=== PATIENT | female | born 1975 | race Hispanic/Latino ===

== ENCOUNTER 2018-08-15 06:28 | Day surgery (SDC) | payer OTHER ==
[2018-08-12 14:07] LABS: BASOPHILS % (AUTO) 0.7 % (0.0-5.0); EOSINOPHILS % (AUTO) 1.8 % (0.0-8.0); LYMPHOCYTES % (AUTO) 26.4 % (21.0-51.0); MEAN CORPUSCULAR HGB CONC 33.6 g/dL (32.0-36.0); MONOCYTES % (AUTO) 5.8 % (3.0-13.0); NEUTROPHILS % (AUTO) 65.3 % (40.0-77.0); PLATELET COUNT (AUTO) 262 K/uL (130-400); RED BLOOD CELL COUNT(AUTO) 4.34 MIL/uL (4.00-5.50); RED CELL DISTRIBUTION WIDTH 13.1 % (11.0-15.5); WHITE BLOOD COUNT (AUTO) 7.9 K/uL (4.8-10.8)
[2018-08-12 14:21] LABS: INR 0.97 (0.85-1.15); PARTIAL THROMBOPLASTIN TIME 28.4 SEC (26.3-35.5); PROTHROMBIN TIME 10.2 SEC (9.6-11.6)
[2018-08-12 14:22] VITALS: BP 119/53
[2018-08-12 14:30] LABS: ALBUMIN 3.8 g/dL (3.5-5.0); BILIRUBIN,TOTAL 0.5 mg/dL (0.2-1.0); CREATININE 0.6 mg/dL (0.5-1.5); TOTAL PROTEIN, SERUM 7.3 g/dL (6.0-8.3)
--- NOTE | 2018-08-12 14:30 | NUR ---
NOTE PT STATES SHE WAS STARTED ON ANTIBIOTICS FOR TOOTH PAIN NOT NECCESSARY FOR INFECTION. SPOKE TO BLAISE FROM DR SAUCEDO OFFICE REGARDING PT BEING ON ANTIBIOTIC FOR HER TOOTH. SHE HAS MADE DOCTOR AWARE, OK TO PROCEED, STATES SHE WILL BE GIVEN ADDITIONAL ABX
[~2018-08-15] VITALS: Ht 170.2 cm; Wt 70.9 kg
[2018-08-15] VITALS (10 sets, daily range): BP systolic 107–127; BP diastolic 38–66
[~2018-08-15 06:28] MED LIST: AMOX500C2 PO; IBUP-2077 PO; LIDOCAINE PATCH ID; MULT-1203 PO
[2018-08-15] MEDS: CEFAZOLIN SODIUM 1 GM VIAL IVP SCH ×2 (07:00→07:50)
--- NOTE | 2018-08-15 07:00 | NUR ---
NEGATIVE HCG DRAWN ON 08-12-18. PT STATES NO CHANCE OF OVER THE WEEKEND.
[2018-08-15] MEDS ORDERED: LACTATED RINGERS 1000ML 1,000 ML IV ONE (07:01)
[2018-08-15] MEDS ORDERED: LIDOCAINE HCL 1% 20 ML VIAL ONE (07:12)
[2018-08-15] MEDS ORDERED: BUPIVACAINE/PF 0.25% 30ML VIAL IJ ONE (07:12)
[2018-08-15] MEDS ORDERED: BUPIVACAINE/PF 0.25% 10ML VIAL IJ ONE (07:13)
[2018-08-15] MEDS ORDERED: CALC500T13 PO (07:18)
[2018-08-15] MEDS ORDERED: IOPAMIDOL 10 ML VIAL ONE (07:45)
[2018-08-15] MEDS ORDERED: MIDAZOLAM HCL 1 MG/ML 2ML VIAL ONE (07:49)
[2018-08-15] MEDS ORDERED: FENTANYL CITRATE PF 50 MCG/1 ML 2ML VIAL ONE (07:49)
[2018-08-15] MEDS ORDERED: PROPOFOL 10 MG/ML 20ML VIAL IV ONE (07:49)
== END 2018-08-15 09:30 | disposition home or self-care (01) ==
LOC: DAH 06:28 → SUH 06:28
PROVIDERS: ATTEND Neuromusculoskeletal Medicine & OMM
DX: M47.896 Other spondylosis, lumbar region (principal); G89.4 Chronic pain syndrome; Z98.890 Other specified postprocedural states; Z83.3 Family history of diabetes mellitus; Z79.899 Other long term (current) drug therapy; Z79.01 Long term (current) use of anticoagulants
CPT/HCPCS: 36415; 64493; 80053; 84702; 85025; 85610; 85730; A4218; J0690; J1030; J2250; J2704; J3010; J3490 ×2; J7120; 76000

== ENCOUNTER 2018-12-23 05:48 | Day surgery (SDC) | payer OTHER ==
[2018-12-21 12:35] VITALS: BP 137/59
[2018-12-21 12:49] LABS: BASOPHILS % (AUTO) 0.8 % (0.0-5.0); HEMATOCRIT 40.5 % (36-48); LYMPHOCYTES % (AUTO) 26.9 % (21.0-51.0); MEAN CORPUSCULAR HEMOGLOBIN 31.3 pg (27.0-33.0); MEAN CORPUSCULAR HGB CONC 34.2 g/dL (32.0-36.0); MEAN CORPUSCULAR VOLUME 91.5 fL (79-99); MONOCYTES % (AUTO) 6.1 % (3.0-13.0); NEUTROPHILS % (AUTO) 64.2 % (40.0-77.0); NUCLEATED RED BLOOD CELLS 0.1 % (0.0-0.19); PLATELET COUNT (AUTO) 257 K/uL (130-400); RED BLOOD CELL COUNT(AUTO) 4.43 MIL/uL (4.00-5.50); RED CELL DISTRIBUTION WIDTH 13.3 % (11.0-15.5); WHITE BLOOD COUNT (AUTO) 7.2 K/uL (4.8-10.8)
[2018-12-21 13:03] LABS: CREATININE 0.5 mg/dL (0.5-1.5); POTASSIUM 3.6 mmol/L (3.5-5.1)
[2018-12-21 13:07] LABS: INR 0.96 (0.85-1.15); PARTIAL THROMBOPLASTIN TIME 29.4 SEC (26.3-35.5); PROTHROMBIN TIME 10.1 SEC (9.6-11.6)
[~2018-12-23] VITALS: Ht 167.6 cm; Wt 71.7 kg
[2018-12-23] VITALS (14 sets, daily range): BP systolic 93–115; BP diastolic 40–63
[~2018-12-23 05:48] MED LIST changes: -AMOX500C2 PO; +CALC500T13 PO; -IBUP-2077 PO; -LIDOCAINE PATCH ID; +LORA10CA9 PO
[2018-12-23] MEDS ORDERED: CEFAZOLIN SODIUM 1 GM VIAL ONE (06:08)
[2018-12-23] MEDS ORDERED: LACTATED RINGERS 1000ML 1,000 ML IV ONE (06:08)
[2018-12-23] MEDS ORDERED: LIDOCAINE HCL 1% MDV 50ML VIAL ONE (06:47)
[2018-12-23] MEDS ORDERED: BUPIVACAINE/PF 0.25% 30ML VIAL IJ ONE (06:47)
[2018-12-23] MEDS ORDERED: LIDOP TP (06:51)
--- NOTE | 2018-12-23 06:53 | NUR ---
ANXIETY gave pt lavender aromatherapy patch and dimmed lights ,call romeo in reach Addendum: 12/23/18 at 0656 by REMBERTO GUPTA RN RN Amended: Links added.
[2018-12-23] MEDS ORDERED: MIDAZOLAM HCL 1 MG/ML 2ML VIAL ONE ×2 (07:58→08:04)
[2018-12-23] MEDS ORDERED: FENTANYL CITRATE PF 50 MCG/1 ML 2ML VIAL ONE (07:59)
[2018-12-23] MEDS ORDERED: DiphenhydrAMINE HCL 50 MG/ML VIAL ONE (08:08)
--- NOTE | 2018-12-23 08:51 | NUR ---
BP INFORMED DR. TORRES PT COMFORTABLE. BP OF 98/46. NO ORDERS RECEIVED. CAN BE TRANSFERRED TO DAY PT.
--- NOTE | 2018-12-23 09:08 | NUR ---
RECEIVE PT RECEIVED FROM PACU VIA STRETCHER AWAKE ALERT ORIENTED X3. PT STABLE. NO COMPLAINTS MADE. BAND AIDS X2 TO LOWER BACK DRY AND INTACT, NO OOZING NO HEMATOMA NOTED. LOWER BACK INJECTION SITES SOFT, NO SWELLING NO REDNESS NOTED. WILL CONTINUE TO MONITOR PT. MAINTAINED AND INSTRUCTED PT TO BE ON BEDREST. VERBALIZED UNDERSTANDING. CALL VALVERDE WITHIN REACH. WILL CALL FOR TO COME IN TO ROOM.
--- NOTE | 2018-12-23 10:40 | NUR ---
DISCHARGE PT DISCHARGED VIA WHEELCHAIR WITH . PT STABLE. NO COMPLAINTS MADE. LOWER BACK REMAINS SOFT, NO SWELLING NO REDNESS NOTED, BAND AIDS REMAINED DRY AND INTACT, NO OOZING NO HEMATOMA NOTED. PT VOIDED PRIOR TO DISCHARGE, AMBULATED WITHOUT ANY PROBLEMS. DISCHARGE INSTRUCTIONS GIVEN TO AND PT, VERBALIZED UNDERSTANDING.
== END 2018-12-23 10:40 | disposition home or self-care (01) ==
LOC: DAH 05:48
PROVIDERS: ATTEND Neuromusculoskeletal Medicine & OMM
DX: M47.816 Spondylosis without myelopathy or radiculopathy, lumbar region (principal); M54.5 Low back pain; Z79.899 Other long term (current) drug therapy; Z98.890 Other specified postprocedural states; Z83.3 Family history of diabetes mellitus; Z82.49 Family history of ischemic heart disease and other diseases of the circulatory system
CPT/HCPCS: 36415; 64493; 80048; 84703; 85025; 85610; 85730; J1030; J1200; J2250 ×2; J3010; J3490 ×2; J7120; 77003; J0690

== ENCOUNTER 2019-06-01 22:06 | Emergency (ER) | payer OTHER ==
[~2019-06-01 22:06] MED LIST changes: +LIDOP TP
[2019-06-01] MEDS ORDERED: KETOROLAC TROMETHAMINE 30MG/ML ONE (22:58)
[2019-06-01] MEDS ORDERED: ORPHENADRINE CITRATE 30 MG/ML ML ONE (22:59)
[2019-06-01] MEDS ORDERED: HYDROCODONE/ACETAMINOPHEN 5/325 MG TAB ONE (23:00)
[2019-06-01] MEDS ORDERED: ONDANSETRON HCL 4 MG/2 ML VIAL ONE (23:01)
== END 2019-06-02 03:45 | disposition home or self-care (01) ==
LOC: EDH 22:06
DX: M62.830 Muscle spasm of back (principal); M54.5 Low back pain; Z90.49 Acquired absence of other specified parts of digestive tract
CPT/HCPCS: 99281; J1885; J2360; J2405

== ENCOUNTER 2023-08-09 09:36 | Emergency (ER) | payer OTHER ==
[~2023-08-09] VITALS: Ht 167.6 cm; Wt 75.3 kg
[2023-08-09] MEDS ORDERED: FAMOTIDINE 20MG VIAL IV ONE (10:00)
[2023-08-09] MEDS ORDERED: ONDANSETRON 4MG INJ IVP ONE (10:00)
[2023-08-09] MEDS ORDERED: 0.9%NACL 1000ML 1,000 ML IV ONE (10:00)
[2023-08-09 10:08] LABS: BASOPHILS # (AUTO) 0.05 K/uL (0.00-0.20); BASOPHILS % (AUTO) 0.6 % (0.0-5.0); EOSINOPHILS # (AUTO) 0.32 K/uL (0.00-0.70); EOSINOPHILS % (AUTO) 3.9 % (0.0-8.0); HEMATOCRIT 41.2 % (36-48); IMMATURE GRANULOCYTE ABSOLUTE 0.03 K/uL (0-1); LYMPHOCYTES # (AUTO) 1.6 K/uL (1.0-4.8); LYMPHOCYTES % (AUTO) 19.6 % (21.0-51.0); MEAN CORPUSCULAR HEMOGLOBIN 28.7 pg (27.0-33.0); MEAN CORPUSCULAR HGB CONC 32.8 g/dL (32.0-36.0); MEAN CORPUSCULAR VOLUME 87.7 fL (79-99); MONOCYTES # (AUTO) 0.5 K/uL (0.1-1.0); MONOCYTES % (AUTO) 5.4 % (3.0-13.0); NEUTROPHILS # (AUTO) 5.8 K/uL (1.8-7.7); NEUTROPHILS % (AUTO) 70.1 % (40.0-77.0); PLATELET COUNT (AUTO) 290 K/uL (130-400); RED CELL DISTRIBUTION WIDTH 13.5 % (11.0-15.5); WHITE BLOOD COUNT (AUTO) 8.3 K/uL (4.8-10.8)
[2023-08-09 10:26] LABS: ALBUMIN 3.4 g/dL (3.5-5.0); BILIRUBIN,TOTAL 0.6 mg/dL (0.2-1.0); CREATININE 0.6 mg/dL (0.5-1.5); TOTAL PROTEIN, SERUM 7.4 g/dL (6.0-8.3)
[2023-08-09 10:30] LABS: POTASSIUM 3.9 mmol/L (3.5-5.1)
[2023-08-09 10:37] LABS: APPEARANCE,URINE CLEAR (CLEAR); BILIRUBIN,URINE NEGATIVE (NEGATIVE); COLOR,URINE LIGHT-YELLOW (YELLOW); GLUCOSE, URINE (UA) NEGATIVE (NEGATIVE); KETONES,URINE NEGATIVE (NEGATIVE); LEUKOCYTE ESTERASE ,URINE 75 Leu/uL (NEGATIVE); NITRATE,URINE NEGATIVE (NEGATIVE); OCCULT BLOOD,URINE NEGATIVE (NEGATIVE); PROTEIN,URINE NEGATIVE (NEGATIVE); UROBILINOGEN,URINE 0.2 mg/dL (0.2-1.0)
[2023-08-09 10:40] LABS: ADD UA MICROSCOPIC YES
[2023-08-09 10:49] LABS: MUCUS,URINE RARE LPF (None Seen); SQUAMOUS EPITHELIAL CELL,UR FEW /HPF (0-2)
[2023-08-09 12:49] VITALS: BP 105/49; PULSE 69; RESP 16; O2SAT 99
[2023-08-09] MEDS ORDERED: DICY20TA2 PO (13:03)
[2023-08-09] MEDS ORDERED: ONDA4TAB10 PO (13:03)
[2023-08-12 14:13] LABS: C DIFFICILE TOXIN A/B Not Detected (Not Detected); ENTEROAGGREGATIVE ECOLI Not Detected (Not Detected); GIARDIA LAMBLIA Not Detected (Not Detected); PLESIOMONAS SHIGELOIDES Not Detected (Not Detected); SAPOVIRUS Not Detected (Not Detected); SHIGELLA/ENTEROINVASIVE E COLI Not Detected (Not Detected); VIBRIO Not Detected (Not Detected); VIBRIO CHOLERAE Not Detected (Not Detected)
== END 2023-08-09 13:23 | disposition home or self-care (01) ==
LOC: EDH 09:36
DX: K52.9 Noninfective gastroenteritis and colitis, unspecified (principal); Z90.49 Acquired absence of other specified parts of digestive tract
CPT/HCPCS: 99284; 96374; 96361; 96375; 80053; 83690; 85025; 87088; 81001; 36415; 87507; J3490; J7030; J2405

== ENCOUNTER 2023-09-24 11:10 | Emergency (ER) | payer OTHER ==
[~2023-09-24] VITALS: Ht 167.6 cm; Wt 77.1 kg
[~2023-09-24 11:10] MED LIST changes: +DICY20TA2 PO; +ONDA4TAB10 PO
[2023-09-24 11:57] LABS: BASOPHILS # (AUTO) 0.04 K/uL (0.00-0.20); BASOPHILS % (AUTO) 0.2 % (0.0-5.0); EOSINOPHILS # (AUTO) 0.01 K/uL (0.00-0.70); HEMATOCRIT 41.8 % (36-48); IMMATURE GRANULOCYTE ABSOLUTE 0.07 K/uL (0-1); LYMPHOCYTES % (AUTO) 4.9 % (21.0-51.0); MEAN CORPUSCULAR HEMOGLOBIN 29.3 pg (27.0-33.0); MEAN CORPUSCULAR HGB CONC 34.9 g/dL (32.0-36.0); MEAN CORPUSCULAR VOLUME 83.8 fL (79-99); MONOCYTES # (AUTO) 0.5 K/uL (0.1-1.0); MONOCYTES % (AUTO) 2.3 % (3.0-13.0); NEUTROPHILS # (AUTO) 19.1 K/uL (1.8-7.7); NEUTROPHILS % (AUTO) 92.3 % (40.0-77.0); PLATELET COUNT (AUTO) 366 K/uL (130-400); RED BLOOD CELL COUNT(AUTO) 4.99 MIL/uL (4.00-5.50); RED CELL DISTRIBUTION WIDTH 13.4 % (11.0-15.5); WHITE BLOOD COUNT (AUTO) 20.7 K/uL (4.8-10.8)
[2023-09-24 12:00] LABS: RAPID GROUP A STREP negative (NEGATIVE)
[2023-09-24] MEDS: 0.9%NACL 1000ML 1,779 ML IV ONE (12:05)
[2023-09-24 12:06] LABS: SARS-CoV-2, RNA, NAAT NEGATIVE SARS CoV-2 (NEGATIVE)
[2023-09-24 12:10] LABS: INFLUENZA TYPE A Negative For Type A (NEGATIVE); INFLUENZA TYPE B Negative For Type B (NEGATIVE)
[2023-09-24 12:17] LABS: ALBUMIN 3.8 g/dL (3.5-5.0); BILIRUBIN,TOTAL 0.5 mg/dL (0.2-1.0); CREATININE 0.6 mg/dL (0.5-1.5); POTASSIUM 3.5 mmol/L (3.5-5.1); TOTAL PROTEIN, SERUM 8.1 g/dL (6.0-8.3)
[2023-09-24] MEDS ORDERED: 0.9%NACL 1000ML 1,779 ML IV ONE (12:30)
[2023-09-24] MEDS: DEXAMETHASONE SOD PHOSPHATE 4 MG/ML 1ML VIAL IM ONE (12:31)
[2023-09-24] MEDS: DICYCLOMINE HCL 10 MG/5 ML ML PO SCH (13:05)
[2023-09-24] MEDS: MAG/ALUM/SIMETH 30 ML UDCUP PO ONE (13:05)
[2023-09-24] MEDS: LIDOCAINE HCL 2% VISCOUS 15 ML UDCUP PO ONE (13:05)
[2023-09-24 13:11] LABS: INR <= 0.93 (0.85-1.15); PROTHROMBIN TIME 10.9 SEC (9.6-11.6)
[2023-09-24 13:12] LABS: PARTIAL THROMBOPLASTIN TIME 28.4 SEC (26.3-35.5)
[2023-09-24] MEDS: CEFTRIAXONE 1G VIAL IVPB ONE (14:39)
[2023-09-24] MEDS ORDERED: MORPHINE 4 MG SYG IM ONE (15:00)
[2023-09-24] MEDS: LEVOFLOXACIN 500 MG/D5W 100 ML 100 ML IV SCH (15:14)
[2023-09-24] MEDS: ONDANSETRON 4MG INJ IVP ONE ×3 (15:14→19:08)
[2023-09-24] MEDS: MORPHINE 4 MG SYG IVP ONE (15:18)
[2023-09-24 16:24] LABS: APPEARANCE,URINE CLEAR (CLEAR); BILIRUBIN,URINE NEGATIVE (NEGATIVE); COLOR,URINE LIGHT-YELLOW (YELLOW); GLUCOSE, URINE (UA) NEGATIVE (NEGATIVE); KETONES,URINE NEGATIVE (NEGATIVE); LEUKOCYTE ESTERASE ,URINE NEGATIVE Leu/uL (NEGATIVE); NITRATE,URINE NEGATIVE (NEGATIVE); OCCULT BLOOD,URINE NEGATIVE (NEGATIVE); PROTEIN,URINE 30 mg/dL (NEGATIVE); UROBILINOGEN,URINE 0.2 mg/dL (0.2-1.0)
[2023-09-24 16:29] LABS: ADD UA MICROSCOPIC YES
[2023-09-24 16:31] LABS: BACTERIA,URINE RARE /HPF (None Seen); MUCUS,URINE RARE LPF (None Seen); OTHER CASTS, URINE 1 /LPF (None Seen); SQUAMOUS EPITHELIAL CELL,UR RARE /HPF (0-2); WBC,URINE 0-1 /HPF (0-1); YEAST,URINE BUDDING RARE /HPF (None Seen)
[2023-09-24 16:32] LABS: HCG,QUALITATIVE URINE NEGATIVE (NEGATIVE)
[2023-09-24] MEDS ORDERED: IOHEXOL-350 75 ML VIAL IV ONE (17:01)
[2023-09-24] MEDS ORDERED: IBUP-2070 PO (18:58)
[2023-09-24] MEDS ORDERED: CLIN-141 PO (18:58)
[2023-09-24 19:14] VITALS: BP 118/60; PULSE 70; RESP 18; O2SAT 97
[2023-09-24] MEDS ORDERED: ONDA4TAB10 PO (19:19)
== END 2023-09-24 19:20 | disposition home or self-care (01) ==
LOC: EDH 11:10
DX: J02.9 Acute pharyngitis, unspecified (principal); R68.83 Chills (without fever); J44.9 Chronic obstructive pulmonary disease, unspecified; K21.9 Gastro-esophageal reflux disease without esophagitis; D69.6 Thrombocytopenia, unspecified; Z79.899 Other long term (current) drug therapy; Z98.890 Other specified postprocedural states; Z90.49 Acquired absence of other specified parts of digestive tract; Z88.0 Allergy status to penicillin; Z88.1 Allergy status to other antibiotic agents; Z88.2 Allergy status to sulfonamides; Z88.8 Allergy status to other drugs, medicaments and biological substances
CPT/HCPCS: 99285; 70491; 96365; 96375; 87635; 96366; 96361; 82550; 84484; 80053; 85025; 85610; 85730; 87040 ×2; 87880; 87804 ×2; 83605 ×2; 81001; 81025; 36415; 74176; 96372; 96376; J1100; J1956; J0696; J2405 ×2; J2270; Q9967

== ENCOUNTER → 2024-11-05 | Outpatient (CLI) | payer OTHER ==
[~2024-11-05] MED LIST changes: +CLIN-141 PO; +IBUP-2070 PO; +ONDA-243 PO; -ONDA4TAB10 PO
[2024-11-05 22:38] VITALS: PULSE 70; RESP 18
[2024-11-05 23:00] VITALS: PULSE 68; RESP 14
[2024-11-05 23:30] VITALS: PULSE 74; RESP 18
[2024-11-06] VITALS (11 sets, daily range): PULSE 62–78; RESP 14–22
--- NOTE | 2024-11-06 04:21 | NUR ---
LIDOCAINE,QUERCERTIN,VITAMIN C Addendum: 11/06/24 at 0423 by TANYA ALANIS Amended: Links added.
== END | disposition home or self-care (01) ==
LOC: SLP 21:02
PROVIDERS: ATTEND Internal Medicine Pulmonary Disease
DX: G47.33 Obstructive sleep apnea (adult) (pediatric) (principal); R06.83 Snoring; J44.9 Chronic obstructive pulmonary disease, unspecified; F39 Unspecified mood [affective] disorder; G25.89 Other specified extrapyramidal and movement disorders; R53.83 Other fatigue
CPT/HCPCS: 95810